=== PATIENT | female | born 1940 | race Caucasian/White ===

== ENCOUNTER 2016-09-23 08:12 | Outpatient (CLI) | payer MEDICARE | END 2016-09-23 08:13 | disposition home or self-care (01) | DX: E55.9 Vitamin D deficiency, unspecified (principal); E78.5 Hyperlipidemia, unspecified; R89.9 Unspecified abnormal finding in specimens from other organs, systems and tissues; R53.83 Other fatigue ==

== ENCOUNTER 2016-10-13 13:39 | Outpatient (CLI) | payer MEDICARE | END 2016-10-13 13:40 | disposition home or self-care (01) | DX: I35.1 Nonrheumatic aortic (valve) insufficiency (principal); I35.0 Nonrheumatic aortic (valve) stenosis; I38 Endocarditis, valve unspecified ==

== ENCOUNTER 2017-01-23 08:00 | Outpatient (CLI) | payer MEDICARE ==
[2017-01-23 19:16] LABS: BILIRUBIN,URINE NEGATIVE (NEGATIVE); PH,URINE 7.5 PH (5.0-7.5)
[2017-01-23 19:47] LABS: UR CULTURE IF IND INDICATED; WBC,URINE >25 /HPF (0-5)
== END 2017-01-23 23:59 ==
LOC: LAB.R 08:00
PROVIDERS: ATTEND Physician Assistant Medical
DX: N39.0 Urinary tract infection, site not specified (principal)
CPT/HCPCS: 81001; 87077; 87086

== ENCOUNTER 2017-07-05 10:41 | Outpatient (CLI) | payer MEDICARE ==
--- NOTE | 2017-07-06 20:21 | Mammography Report ---
DIGITAL SCREENING MAMMOGRAM: 07/05/2017 CLINICAL INDICATION: A 76-year-old for screening. COMPARISON: 02/2016, 02/2015, 01/2014, 12/2012, 11/2011, 10/2010, 09/2009. TECHNIQUE: Routine CC and MLO projections were obtained of the breasts. FINDINGS: Scattered fibroglandular tissue is present within the breasts. There are no dominant mass es, suspicious microcalcifications, or secondary signs of malignancy. In comparison to the previous studies, there are no significant changes. ASSESSMENT: NO MAMMOGRAPHIC EVIDENCE OF MALIGNANCY. NO SIGNIFICANT INTERVAL CHANGES. RECOMMENDATION: Screening mammography is recommended annually. BIRADS category 1 - negative. STANDARD QUALIFYING STATEMENTS 1. This examination was reviewed with the aid of Computed-Aided Detection (CAD). 2. A negative or benign imaging report should not delay biopsy if clinically suspicious findings are present. Consider surgical consultation if warranted. More than 5% of cancers are not identified b y imaging. 3. Dense breasts may obscure an underlying neoplasm. JOB #: [id number] EXT JOB #:[id number]
== END 2017-07-05 10:42 | disposition home or self-care (01) ==
LOC: DI 10:41
PROVIDERS: ATTEND Physician Assistant Medical
DX: Z12.31 Encounter for screening mammogram for malignant neoplasm of breast (principal)
CPT/HCPCS: 77067

== ENCOUNTER 2017-09-25 08:46 | Outpatient (CLI) | payer MEDICARE ==
[2017-09-25 10:42] LABS: BASOPHILS # (AUTO) 0.1 10^3/uL (0.0-0.1); EOSINOPHILS # (AUTO) 0.1 10^3/uL (0.0-0.7); EOSINOPHILS % (AUTO) 1.7 %; HGB - HEMOGLOBIN 14.7 g/dL (12.0-16.0); LYMPHOCYTES # (AUTO) 1.2 10^3/uL (1.5-3.5); LYMPHOCYTES % (AUTO) 23.5 %; MEAN CORPUSCULAR HEMOGLOBIN 31.6 pg (27.0-31.0); MEAN CORPUSCULAR HGB CONC 34.1 g/dL (32.0-36.0); MEAN CORPUSCULAR VOLUME 92.8 fL (81.0-99.0); MEAN PLATELET VOLUME 8.4 fL (7.9-10.8); MONOCYTES # (AUTO) 0.4 10^3/uL (0.0-1.0); MONOCYTES % (AUTO) 7.4 %; NEUTROPHILS # (AUTO) 3.4 10^3/uL (1.5-6.6); NEUTROPHILS % (AUTO) 66.4 %; PLT - PLATELET COUNT 226 10^3/uL (130-450); RED BLOOD COUNT 4.63 10^6/uL (4.20-5.40); RED CELL DISTRIBUTION WIDTH 12.7 % (12.0-15.0); WHITE BLOOD COUNT 5.1 x10^3/uL (4.8-10.8)
[2017-09-25 13:41] LABS: ALBUMIN/GLOBULIN RATIO 1.3 (1.0-2.2); ALKALINE PHOSPHATASE 76 IU/L (42-121); ALT ALANINE AMINOTRANSFERASE 40 IU/L (10-60); AST ASPARTATE AMINOTRANSFERASE 34 IU/L (10-42); BILIRUBIN,TOTAL 0.7 mg/dL (0.2-1.0); BUN - BLOOD UREA NITROGEN 14 mg/dL (6-20); CARBON DIOXIDE - CO2 25 mmol/L (21-32); CHLORIDE 105 mmol/L (101-111); CHOL/HDL RATIO 5.2 (<4.4); CHOLESTEROL 182 mg/dL; CREATININE 0.7 mg/dL (0.4-1.0); GFR - MDRD 82 (>89); GLUCOSE 96 mg/dL (70-100); HDL CHOLESTEROL 35 mg/dL; LDL CHOLESTEROL,CALCULATED 81 mg/dL; LDL/HDL RATIO 2.3 (<4.4); SODIUM 138 mmol/L (135-145); TOTAL PROTEIN 7.2 g/dL (6.7-8.2); VLDL CHOLESTEROL 66 mg/dL
== END 2017-09-25 08:47 | disposition home or self-care (01) ==
LOC: LAB.F 08:46
PROVIDERS: ATTEND Physician Assistant Medical
DX: E78.5 Hyperlipidemia, unspecified (principal); E55.9 Vitamin D deficiency, unspecified; M85.80 Other specified disorders of bone density and structure, unspecified site; L65.9 Nonscarring hair loss, unspecified; R53.83 Other fatigue; Z51.81 Encounter for therapeutic drug level monitoring; Z79.899 Other long term (current) drug therapy
CPT/HCPCS: 36415; 80053; 80061; 82306; 83721; 84443; 85025

== ENCOUNTER 2017-11-10 09:31 | Outpatient (CLI) | payer MEDICARE ==
--- NOTE | 2017-11-10 11:45 | XRAY Report ---
LEFT HAND THREE VIEWS: 11/10/2017 HISTORY: Localized swelling, lump. FINDINGS: Three views of the left hand are interpreted without comparisons. There are scattered degenerative changes of the interphalangeal joints of the fingers and thumb and of the first metacarpocarpal joint. There is no evidence of fracture, dislocation, radiopaque foreign body or other abnormality. In the area of the clinically apparent hematoma on the dorsum of the hand, adjacent to the base of the thumb, no x-ray abnormality is seen. IMPRESSION: DEGENERATIVE CHANGE LEFT HAND WITHOUT SUPERIMPOSED ACUTE BONY PATHOLOGY. TD: 11/10/2017 11:44 MTDNorma
== END 2017-11-10 09:32 | disposition home or self-care (01) ==
LOC: DI 09:31
PROVIDERS: ATTEND Physician Assistant Medical
DX: M19.042 Primary osteoarthritis, left hand (principal)

== ENCOUNTER 2017-12-22 08:14 | Outpatient (CLI) | payer MEDICARE ==
[2017-12-22 13:27] LABS: BUN - BLOOD UREA NITROGEN 14 mg/dL (6-20); CALCIUM 9.4 mg/dL (8.5-10.3); CARBON DIOXIDE - CO2 25 mmol/L (21-32); CHLORIDE 105 mmol/L (101-111); CHOL/HDL RATIO 4.7 (<4.4); CHOLESTEROL 161 mg/dL; CREATININE 0.6 mg/dL (0.4-1.0); GFR - MDRD 97 (>89); GLUCOSE 103 mg/dL (70-100); HDL CHOLESTEROL 34 mg/dL; LDL CHOLESTEROL,CALCULATED 78 mg/dL; LDL/HDL RATIO 2.3 (<4.4); SODIUM 139 mmol/L (135-145); VLDL CHOLESTEROL 49 mg/dL
== END 2017-12-22 08:15 | disposition home or self-care (01) ==
LOC: LAB.F 08:14
PROVIDERS: ATTEND Physician Assistant Medical
DX: E78.5 Hyperlipidemia, unspecified (principal); Z51.81 Encounter for therapeutic drug level monitoring
CPT/HCPCS: 36415; 80048; 80061; 83721

== ENCOUNTER 2018-03-15 09:41 | Outpatient (CLI) | payer MEDICARE ==
[2018-03-15 18:11] LABS: ALBUMIN 4.1 g/dL (3.2-5.5); ALBUMIN/GLOBULIN RATIO 1.4 (1.0-2.2); ALKALINE PHOSPHATASE 87 IU/L (42-121); ALT ALANINE AMINOTRANSFERASE 36 IU/L (10-60); AST ASPARTATE AMINOTRANSFERASE 31 IU/L (10-42); BILIRUBIN,TOTAL 0.8 mg/dL (0.2-1.0); BUN - BLOOD UREA NITROGEN 15 mg/dL (6-20); CALCIUM 9.8 mg/dL (8.5-10.3); CARBON DIOXIDE - CO2 25 mmol/L (21-32); CHLORIDE 106 mmol/L (101-111); CHOLESTEROL 168 mg/dL; CREATININE 0.8 mg/dL (0.4-1.0); GFR - MDRD 70 (>89); GLUCOSE 94 mg/dL (70-100); HDL CHOLESTEROL 42 mg/dL; LDL CHOLESTEROL,CALCULATED 73 mg/dL; LDL/HDL RATIO 1.7 (<4.4); SODIUM 140 mmol/L (135-145); TOTAL PROTEIN 7.1 g/dL (6.7-8.2); VLDL CHOLESTEROL 53 mg/dL
== END 2018-03-15 09:42 | disposition home or self-care (01) ==
LOC: LAB.F 09:41
PROVIDERS: ATTEND Physician Assistant Medical
DX: E78.5 Hyperlipidemia, unspecified (principal); E78.1 Pure hyperglyceridemia; Z51.81 Encounter for therapeutic drug level monitoring
CPT/HCPCS: 36415; 80053; 80061; 83721

== ENCOUNTER 2018-06-26 09:13 | Outpatient (CLI) | payer MEDICARE ==
[2018-06-26 18:02] LABS: ALBUMIN 4.1 g/dL (3.2-5.5); ALBUMIN/GLOBULIN RATIO 1.2 (1.0-2.2); ALKALINE PHOSPHATASE 83 IU/L (42-121); ALT ALANINE AMINOTRANSFERASE 29 IU/L (10-60); AST ASPARTATE AMINOTRANSFERASE 24 IU/L (10-42); BILIRUBIN,TOTAL 0.7 mg/dL (0.2-1.0); BUN - BLOOD UREA NITROGEN 19 mg/dL (6-20); CALCIUM 9.6 mg/dL (8.5-10.3); CARBON DIOXIDE - CO2 29 mmol/L (21-32); CHLORIDE 104 mmol/L (101-111); CHOL/HDL RATIO 4.4 (<4.4); CHOLESTEROL 181 mg/dL; CREATININE 0.8 mg/dL (0.4-1.0); GFR - MDRD 70 (>89); GLUCOSE 94 mg/dL (70-100); HDL CHOLESTEROL 41 mg/dL; LDL CHOLESTEROL,CALCULATED 79 mg/dL; LDL/HDL RATIO 1.9 (<4.4); SODIUM 142 mmol/L (135-145); TOTAL PROTEIN 7.6 g/dL (6.7-8.2); VLDL CHOLESTEROL 61 mg/dL
== END 2018-06-26 09:14 | disposition home or self-care (01) ==
LOC: LAB.F 09:13
PROVIDERS: ATTEND Physician Assistant Medical
DX: E78.5 Hyperlipidemia, unspecified (principal); E78.1 Pure hyperglyceridemia; Z51.81 Encounter for therapeutic drug level monitoring
CPT/HCPCS: 36415; 80053; 80061; 83721

== ENCOUNTER 2018-07-10 13:06 | Outpatient (CLI) | payer MEDICARE ==
--- NOTE | 2018-07-11 08:57 | DEXA Report ---
Reason: POSTMENOPAUSAL STATUS Procedure Date: 07/10/2018 Accession Number: [id number] / [id number] Procedure: DEX - Dexa Spine and/or Hip CPT Code: FULL RESULT: EXAM: Dexa Spine and/or Hip DATE: 07/10/2018 1:38 PM CLINICAL HISTORY: POSTMENOPAUSAL STATUS TECHNIQUE: Dual energy x-ray absorptiometry (DXA) was performed on a be2 System. Regions measured are the AP Spine, femoral neck, and if needed forearm. COMPARISON: 04/25/2016 In accordance with the International Society for Clinical Densitometry (ISCD) guidelines, data from previous exams may be reanalyzed using current recommendations and techniques. This is done to allow a more accurate basis for comparison with the current study. FINDINGS: The data for the lumbar spine is as follows: BMD (g/cm/cm) T-SCORE Z-SCORE REGION L1 L2 1.001 -1.7 0.0 L3 1.352 1.3 3.0 L4 1.290 0.8 2.5 TOTAL 1.214 0.1 1.8 NOTE: All evaluable vertebrae are used for classification The data for the hip is as follows: BMD (g/cm/cm) T-SCORE Z-SCORE REGION Neck 0.747 -2.1 -0.2 TOTAL 0.788 -1.7 0.0 NOTE: The femoral neck or total proximal femur, whichever is lowest, is used for classification. DXA RESULTS SUMMARY: Spine SCAN DATE AGE BMD CHANGE VS CHANGE VS PREVIOUS PREVIOUS % 07[age]10/2018 [age] 1.214 0.103* 9.3* 04/25/2016 [age] 1.111 * Denotes significant change at the 95% confidence level. Denotes dissimilar scan types or analysis methods. DXA RESULTS SUMMARY: Hip SCAN DATE AGE BMD CHANGE VS CHANGE VS PREVIOUS PREVIOUS % 07[birth year]10/2018 [age] 0.788 -0.009 -1.1 04/25/2016 [age] 0.797 * Denotes significant change at the 95% confidence level. Denotes dissimilar scan types or analysis methods. IMPRESSION: THE WHO CLASSIFICATION BASED ON THE INTERNATIONAL REFERENCE STANDARD IS OSTEOPENIA. THE FRACTURE RISK IS INCREASED. RECOMMENDATION: Patients with diagnosis of osteoporosis or osteopenia should have regular bone mineral density assessment. For those eligible for Medicare, routine testing is allowed once every 2 years. Testing frequency can be increased for patients who have rapidly progressing disease or for those who are receiving medical therapy to restore bone mass. Please note that the lumbar vertebral body labeled L2 is in actuality likely L1. This technical inaccuracy was propagated from the previous DEXA scan in order to obtain a consistent and comparable measurement of the bone density in the lumbar spine. COMMENT: World Health Organization (WHO) definitions for osteoporosis and osteopenia: NORMAL BMD: T-score at -1.0 or higher, fracture risk is low OSTEOPENIA BMD: T-score between -1.0 and -2.5, fracture risk is increased. OSTEOPOROSIS BMD: T-score at -2.5 or lower, fracture risk is high. National Osteoporosis Foundation recommends: 1. Obtain adequate dietary calcium (at least 1200 mg per day) and vitamin D (400-800 international units per day). 2. Participate, as appropriate, in regular weightbearing and muscle-strengthening exercise. 3. Avoid tobacco use and reduce alcohol and caffeine intake. 4. For more detailed information see the website at www.NOF.org.
== END 2018-07-10 13:07 | disposition home or self-care (01) ==
LOC: DI 13:06
PROVIDERS: ATTEND Physician Assistant Medical
DX: M85.89 Other specified disorders of bone density and structure, multiple sites (principal); Z78.0 Asymptomatic menopausal state
CPT/HCPCS: 77080

== ENCOUNTER 2018-12-17 12:20 | Outpatient (CLI) | payer MEDICARE ==
[2018-12-17 17:43] LABS: BASOPHILS % (AUTO) 0.8 %; EOSINOPHILS # (AUTO) 0.2 10^3/uL (0.0-0.7); EOSINOPHILS % (AUTO) 3.7 %; HGB - HEMOGLOBIN 13.7 g/dL (12.0-16.0); LYMPHOCYTES # (AUTO) 1.3 10^3/uL (1.5-3.5); LYMPHOCYTES % (AUTO) 25.9 %; MEAN CORPUSCULAR HEMOGLOBIN 32.2 pg (27.0-31.0); MEAN CORPUSCULAR VOLUME 97.3 fL (81.0-99.0); MEAN PLATELET VOLUME 8.2 fL (7.9-10.8); MONOCYTES # (AUTO) 0.4 10^3/uL (0.0-1.0); MONOCYTES % (AUTO) 8.5 %; NEUTROPHILS # (AUTO) 3.2 10^3/uL (1.5-6.6); NEUTROPHILS % (AUTO) 61.1 %; PLT - PLATELET COUNT 250 10^3/uL (130-450); RED BLOOD COUNT 4.25 10^6/uL (4.20-5.40); RED CELL DISTRIBUTION WIDTH 13.1 % (12.0-15.0); WHITE BLOOD COUNT 5.2 x10^3/uL (4.8-10.8)
[2018-12-17 18:20] LABS: CHOL/HDL RATIO 4.1 (<4.4); CHOLESTEROL 167 mg/dL; HDL CHOLESTEROL 41 mg/dL; LDL CHOLESTEROL,CALCULATED 61 mg/dL; LDL/HDL RATIO 1.5 (<4.4); VLDL CHOLESTEROL 65 mg/dL
== END 2018-12-17 12:21 | disposition home or self-care (01) ==
LOC: LAB.F 12:20
PROVIDERS: ATTEND Physician Assistant Medical
DX: E78.5 Hyperlipidemia, unspecified (principal); Z79.899 Other long term (current) drug therapy
CPT/HCPCS: 36415; 80061; 83721; 85025

== ENCOUNTER 2019-05-07 16:47 | Outpatient (CLI) | payer MEDICARE ==
[2019-05-07 17:02] LABS: BASOPHILS # (AUTO) 0.1 10^3/uL (0.0-0.1); BASOPHILS % (AUTO) 0.4 %; EOSINOPHILS % (AUTO) 0.2 %; HGB - HEMOGLOBIN 13.8 g/dL (12.0-16.0); LYMPHOCYTES # (AUTO) 1.9 10^3/uL (1.5-3.5); LYMPHOCYTES % (AUTO) 14.8 %; MEAN CORPUSCULAR HEMOGLOBIN 32.4 pg (27.0-31.0); MEAN CORPUSCULAR VOLUME 98.1 fL (81.0-99.0); MEAN PLATELET VOLUME 9.1 fL (7.9-10.8); MONOCYTES % (AUTO) 7.5 %; NEUTROPHILS % (AUTO) 76.6 %; PLT - PLATELET COUNT 243 10^3/uL (130-450); RED BLOOD COUNT 4.26 10^6/uL (4.20-5.40); RED CELL DISTRIBUTION WIDTH 12.5 % (12.0-15.0)
[2019-05-07 17:15] LABS: CREATININE 0.7 mg/dL (0.4-1.0)
== END 2019-05-07 16:48 | disposition home or self-care (01) ==
LOC: LAB 16:47
PROVIDERS: ATTEND Family Medicine
DX: K57.92 Diverticulitis of intestine, part unspecified, without perforation or abscess without bleeding (principal)
CPT/HCPCS: 36415; 80048; 85025

== ENCOUNTER 2019-06-06 09:00 | Outpatient (CLI) | payer MEDICARE ==
[2019-06-06 18:19] LABS: ALBUMIN 4.6 g/dL (3.2-5.5); ALBUMIN/GLOBULIN RATIO 1.4 (1.0-2.2); ALKALINE PHOSPHATASE 84 IU/L (42-121); ALT ALANINE AMINOTRANSFERASE 32 IU/L (10-60); AST ASPARTATE AMINOTRANSFERASE 31 IU/L (10-42); BILIRUBIN,TOTAL 0.6 mg/dL (0.2-1.0); BUN - BLOOD UREA NITROGEN 13 mg/dL (6-20); CALCIUM 9.6 mg/dL (8.5-10.3); CARBON DIOXIDE - CO2 28 mmol/L (21-32); CHLORIDE 105 mmol/L (101-111); CHOL/HDL RATIO 2.9 (<4.4); CHOLESTEROL 135 mg/dL; CREATININE 0.7 mg/dL (0.4-1.0); GFR - MDRD 81 (>89); GLUCOSE 103 mg/dL (70-100); HDL CHOLESTEROL 47 mg/dL; LDL CHOLESTEROL,CALCULATED 35 mg/dL; LDL/HDL RATIO 0.7 (<4.4); SODIUM 139 mmol/L (135-145); VLDL CHOLESTEROL 53 mg/dL
== END 2019-06-06 09:01 | disposition home or self-care (01) ==
LOC: LAB.S 09:00
PROVIDERS: ATTEND Family Medicine
DX: K57.92 Diverticulitis of intestine, part unspecified, without perforation or abscess without bleeding (principal); E78.5 Hyperlipidemia, unspecified; Z51.81 Encounter for therapeutic drug level monitoring; Z79.899 Other long term (current) drug therapy
CPT/HCPCS: 36415; 80053; 80061; 83721

== ENCOUNTER 2019-08-28 10:50 | Outpatient (CLI) | payer MEDICARE ==
--- NOTE | 2019-08-29 12:50 | CARDIAC PROCEDURE NOTE ---
DATE OF SERVICE: 08/28/2019 Physician: Claudette Pillai MD, [facility] INDICATION: Exertional shortness of breath, aortic regurgitation. CARDIAC RISK FACTORS: Postmenopausal, hyperlipidemia, family history of heart disease at early age. DESCRIPTION OF PROCEDURE: After signing informed consent, the patient underwent a Abner-protocol treadmill stress test with Echo imaging pre and post exercise. RESTING HEART RATE: 62. PEAK HEART RATE: 136 (94% predicted maximum heart rate for age). RESTING BLOOD PRESSURE: 141/77. PEAK BLOOD PRESSURE: 189/92. The patient exercised for 4 minutes. She achieved a peak heart rate of 136 (94% PMHR) and 5.8 METS. The patient had moderate shortness of breath at peak, no chest pain. The test was stopped because of fatigue and achieving target heart rate. Oxygen saturation was 93-98% throughout the entire test, on room air. RESTING EKG: Normal sinus rhythm, poor R-wave progression, inverted T waves in leads V3 through V6. EKG AT PEAK: New flattening of T waves in leads V3 through V6. SUMMARY: 1. Abnormal resting EKG. 2. Fair exercise tolerance. 3. T-wave changes develop, suggesting ischemia by EKG criteria, during exercise stress. 4. This patient's cardiac risk based on all the above: Moderate-High. 5. Echo images looking for wall motion abnormalities are reported separately. cc: Annel Corcoran PA-C TD: 08/29/2019 12:16 MTDD
== END 2019-08-28 10:51 | disposition home or self-care (01) ==
LOC: DI 10:50
PROVIDERS: ATTEND Physician Assistant Medical
DX: I35.2 Nonrheumatic aortic (valve) stenosis with insufficiency (principal); R06.09 Other forms of dyspnea; R94.31 Abnormal electrocardiogram [ECG] [EKG]
CPT/HCPCS: 93350

== ENCOUNTER 2019-08-28 10:53 | Outpatient (CLI) | payer MEDICARE ==
--- NOTE | 2019-08-28 16:00 | Mammography Report ---
Reason: SCREENING MAMMO Procedure Date: 08/28/2019 Accession Number: [id number] / [id number] Procedure: MANUEL - Screening Mammo w/Gino CPT Code: Final Report FULL RESULT: EXAM: Screening Mammo w/Gino DATE: 08/28/2019 12:52 PM CLINICAL HISTORY: The patient is an asymptomatic 78-year-old female with a second degree family history of breast cancer. TECHNIQUE: (B) - Bilateral CC and MLO views were obtained. COMPARISON: 07/05/2017, 02/18/2016, 02/11/2015, 01/11/2014 and 12/18/2012 PARENCHYMAL PATTERN: (A) - The breasts demonstrate scattered fibroglandular densities bilaterally. FINDINGS: The pattern of asymmetry is stable given positional variation. Few benign calcifications again noted. There are no suspicious masses, calcifications, or areas of distortion. IMPRESSION: Benign findings. BI-RADS category 2. RECOMMENDATION: (ANNUAL) - Recommend routine annual screening mammography. BI-RADS CATEGORY: (2) - Benign Findings. STANDARD QUALIFYING STATEMENTS: A negative or benign imaging report should not preclude biopsy if clinically suspicious findings are present. Dense breasts may obscure an underlying neoplasm. This examination was reviewed with the aid of 3D breast imaging (tomosynthesis).
== END 2019-08-28 10:54 | disposition home or self-care (01) ==
LOC: DI 10:53
PROVIDERS: ATTEND Physician Assistant Medical
DX: Z12.31 Encounter for screening mammogram for malignant neoplasm of breast (principal); Z80.3 Family history of malignant neoplasm of breast
CPT/HCPCS: 77063; 77067

== ENCOUNTER 2019-10-07 16:41 | Emergency (ER) | payer MEDICARE ==
[2019-10-07] MEDS ORDERED: KETOROLAC 30 MG/ML VIAL IVP STA (17:03)
[2019-10-07] MEDS ORDERED: MORPHINE 2 MG/ML CARPUJECT IVP STA ×2 (17:03→17:49)
--- NOTE | 2019-10-07 17:05 | ED Physician Documentation ---
History of Present Illness - Stated complaint Stated Complaint: LT SIDE WEAKNESS/CP/BACK PX - Chief complaint Chief Complaint: Ext Problem - History obtained from History obtained from: Patient, Family - History of Present Illness Timing: Today Pain level max: 10 Pain level now: 10 - Additonal information Additional information: 78-year-old female states that she woke up today with left shoulder pain. She states that she rubbed CBD oil on it and went about her day. 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 The pain is gradually worsened throughout the day. Now radiating down the left arm into the left neck. Also has pain in the left upper chest. No shortness of breath. No cardiac history. Worse with movement and better with rest. Does not recall any injury. Review of Systems Ten Systems: 10 systems reviewed and negative Constitutional: denies: Fever, Chills Ears: denies: Ear pain Nose: denies: Rhinorrhea / runny nose, Congestion Throat: denies: Sore throat Cardiac: denies: Palpitations, Calf pain Respiratory: denies: Cough GI: denies: Nausea, Vomiting, Diarrhea Skin: denies: Rash Musculoskeletal: denies: Neck pain, Back pain Neurologic: denies: Headache PD PAST MEDICAL HISTORY - Past Medical History Cardiovascular: High cholesterol, Murmur Respiratory: None Endocrine/Autoimmune: None GI: GERD, Colon polyps : None HEENT: None Psych: Depression Musculoskeletal: Osteoarthritis, Chronic back pain Derm: None - Past Surgical History General: Colonoscopy Ortho: Spine surgery /[employer]INGUIST: Tubal ligation HEENT: Cataracts - Present Medications Home Medications: Ambulatory Orders Medication Instructions Recorded Confirmed Atorvastatin Calcium 1 QPM 07/06/16 Biotin 0.5 DAILY 07/06/16 Calcium Carbonate/Vitamin D3 2 DAILY 07/06/16 [Calcium 600-Vit D3 400 Tablet] Cholecalciferol (Vitamin D3) 4 BID 07/06/16 [Vitamin D3] Citalopram [CeleXA] 1.5 DAILY 07/06/16 Cyanocobalamin (Vitamin B-12) 1 DAILY 07/06/16 [Vitamin B12] Docusate Sodium [Stool Softener] 2 BID 07/06/16 Gabapentin 1 BID 07/06/16 Hydrocodone/Acetaminophen 1 BID 07/06/16 [Hydrocodone-APAP 5-300] Magnesium 2 DAILY PM 11/30/16 Multivitamin [Multivitamins] 1 DAILY 07/06/16 Naproxen Sodium [Aleve] 2 BID 07/06/16 Diclofenac Sodium [Voltaren] 2 gm TP Q6H PRN #1 gel..gram. 10/07/19 Oxycodone HCl 5 - 10 mg PO Q6H PRN #20 tablet 10/07/19 - Allergies Allergies/Adverse Reactions: Allergies Allergy/AdvReac Type Severity Reaction Status Date / Time Sulfa (Sulfonamide Allergy Unknown Verified 07/06/16 15:54 Antibiotics) PD ED PE NORMAL - Vitals Vital signs reviewed: Yes - General General: Alert and oriented X 3, No acute distress, Well developed/nourished - HEENT HEENT: PERRL, Moist mucous membranes - Neck Neck: Supple, no meningeal sign - Cardiac Cardiac: RRR, No murmur, Strong equal pulses - Respiratory Respiratory: No respiratory distress, Clear bilaterally - Abdomen Abdomen: Soft, Non tender, Non distended - Back Back: No spinal TTP - Derm Derm: Warm and dry - Extremities Extremities: No edema, No calf tenderness / cord, Other (Tender to palpation over the left glenohumeral joint. Pain with internal and external rotation. Limited range of motion secondary to pain. Also tender around the rotator cuff. Otherwise normal exam of the left shoulder.) - Neuro Neuro: Alert and oriented X 3 - Psych Psych: Normal mood, Normal affect Results - Vitals Vitals: Vital Signs - 24 hr 10/07/19 10/07/19 10/07/19 16:45 17:00 17:49 Temperature 36.9 C Heart Rate 74 80 75 Respiratory 18 24 18 Rate Blood Pressure 119/80 121/85 H 147/83 H O2 Saturation 97 100 97 10/07/19 18:25 Temperature Heart Rate 80 Respiratory 16 Rate Blood Pressure 147/86 H O2 Saturation 100 Oxygen O2 Source Room air - EKG (time done) 1655 Rate: Rate (enter#) (65) Rhythm: NSR [place]: Anterior hemiblock (LAFB) Intervals: Normal [place] QRS: Normal Ischemia: Non specific changes - Labs Labs: Laboratory Tests 10/07/19 10/07/19 10/07/19 17:20 17:20 17:20 WBC 10.8 RBC 3.98 L Hgb 13.2 Hct 39.3 MCV 98.7 MCH 33.2 H MCHC 33.6 RDW 12.1 Plt Count 224 MPV 9.2 Neut # (Auto) 8.0 H Lymph # (Auto) 1.9 [place] # (Auto) 0.7 Eos # (Auto) 0.1 Baso # (Auto) 0.1 Absolute Nucleated RBC 0.00 Nucleated RBC % 0.0 Sodium 136 Potassium 4.3 Chloride 102 Carbon Dioxide 24 Anion Gap 10.0 BUN 17 Creatinine 1.0 Estimated GFR (MDRD) 54 L Glucose 137 H Calcium 9.8 Total Bilirubin 0.7 AST 28 ALT 24 Alkaline Phosphatase 64 Troponin I High Sens 3.2 Total Protein 7.3 Albumin 4.5 Globulin 2.8 Albumin/Globulin Ratio 1.6 Lipase 30 - Rads (name of study) Chest x-ray Radiology: Prelim report reviewed, EMP read contemporaneously, See rad report (No acute abnormality) Left shoulder x-ray Radiology: Prelim report reviewed, EMP read contemporaneously, See rad report (No acute abnormality) PD MEDICAL DECISION MAKING - ED course Complexity details: reviewed results, re-evaluated patient, considered differential, d/w patient, d/w family ED course: Patient with left shoulder pain, likely rotator cuff injury. Will place in a sling, prescribed pain medication for home and have her follow-up with her doctor. No significant lab abnormalities. No evidence of cardiac etiology. No evidence of aortic dissection. Neurovascular intact. Patient counseled regarding signs and symptoms for which I believe and urgent re-evaluation would be necessary. Patient with good understanding of and agreement to plan and is comfortable going home at this time This document was made in part using voice recognition software. While efforts are made to proofread this document, sound alike and grammatical errors may occur. Departure - Departure Disposition: 01 Home, Self Care Clinical Impression: Left shoulder pain Qualifiers: Chronicity: acute Qualified Code(s): M25.512 - Pain in left shoulder Condition: Good Instructions: ED Shoulder Pain [facility] Follow-Up: Annel Corcoran PA-C [Primary Care Provider] - [facility] [Provider Group] - Within 1 week Prescriptions: Diclofenac Sodium [Voltaren] 2 gm TP Q6H PRN #1 gel..gram. PRN Reason: pain Oxycodone HCl 5 - 10 mg PO Q6H PRN #20 tablet PRN Reason: pain Comments: Return if you worsen. Follow-up with your doctor and/or orthopedics next week for repeat evaluation. Wear the sling for the next 2 to 3 days. Continue to gently range and stretch her shoulder. You can try the Voltaren gel as well. Do not drink alcohol or drive while on narcotic pain medicine. Note that many narcotic pain relievers also contain tylenol/acetaminophen. Please ensure that your total dose of acetaminophen from all sources does not exceed 3 grams (3000mg) per day. You may constipated on this medication, take a stool softener such as "Colace" twice a day while you are on it. Also recommend a iupy-ldx-gnwfsmr laxative such as senna or MiraLAX any day that you do not have a bowel movement. If you received narcotic pain medication in the emergency department, do not drive or operate machinery for the next 24 hours. Discharge Date/Time: 10/07/19 18:24
[2019-10-07 17:27] LABS: BASOPHILS # (AUTO) 0.1 10^3/uL (0.0-0.1); BASOPHILS % (AUTO) 0.5 %; EOSINOPHILS # (AUTO) 0.1 10^3/uL (0.0-0.7); EOSINOPHILS % (AUTO) 0.9 %; HGB - HEMOGLOBIN 13.2 g/dL (12.0-16.0); LYMPHOCYTES # (AUTO) 1.9 10^3/uL (1.5-3.5); LYMPHOCYTES % (AUTO) 17.5 %; MEAN CORPUSCULAR HEMOGLOBIN 33.2 pg (27.0-31.0); MEAN CORPUSCULAR HGB CONC 33.6 g/dL (32.0-36.0); MEAN CORPUSCULAR VOLUME 98.7 fL (81.0-99.0); MEAN PLATELET VOLUME 9.2 fL (7.9-10.8); MONOCYTES # (AUTO) 0.7 10^3/uL (0.0-1.0); MONOCYTES % (AUTO) 6.8 %; NEUTROPHILS % (AUTO) 73.8 %; PLT - PLATELET COUNT 224 10^3/uL (130-450); RED BLOOD COUNT 3.98 10^6/uL (4.20-5.40); RED CELL DISTRIBUTION WIDTH 12.1 % (12.0-15.0); WHITE BLOOD COUNT 10.8 x10^3/uL (4.8-10.8)
--- NOTE | 2019-10-07 17:32 | XRAY Report ---
Reason: L shoulder pain Procedure Date: 10/07/2019 Accession Number: [id number] / [id number] Procedure: XR - Shoulder 3 View LT CPT Code: Final Report FULL RESULT: EXAM: LEFT SHOULDER RADIOGRAPHY EXAM DATE: 10/07/2019 05:19 PM. CLINICAL HISTORY: Left shoulder pain. COMPARISON: None. TECHNIQUE: 3 views. FINDINGS: Bones: Normal. No fracture or bone lesion. Joints: Mild acromioclavicular joint degenerative changes. No dislocation seen. Soft tissues: There is a calcified granuloma at the left lung base. The visualized ribs are intact. IMPRESSION: Mild acromioclavicular joint degenerative changes, otherwise unremarkable. RADIA
--- NOTE | 2019-10-07 17:33 | XRAY Report ---
Reason: Chest Pain Procedure Date: 10/07/2019 Accession Number: [id number] / [id number] Procedure: XR - Chest 1 View X-Ray CPT Code: 33842 Final Report FULL RESULT: EXAM: CHEST RADIOGRAPHY EXAM DATE: 10/07/2019 05:19 PM. CLINICAL HISTORY: Chest Pain. COMPARISON: None. TECHNIQUE: 1 view. FINDINGS: Lungs/Pleura: Low lung volumes. Small calcified nodule seen at both lung bases. There is no confluent lung consolidation. No pleural effusion or pneumothorax. Mediastinum: Within exam limitations, the cardiomediastinal contour is normal. Other: None. IMPRESSION: Unremarkable portable chest radiograph. RADIA
[2019-10-07 17:40] LABS: ALBUMIN 4.5 g/dL (3.2-5.5); ALBUMIN/GLOBULIN RATIO 1.6 (1.0-2.2); BILIRUBIN,TOTAL 0.7 mg/dL (0.2-1.0); CALCIUM 9.8 mg/dL (8.5-10.3); TOTAL PROTEIN 7.3 g/dL (6.7-8.2)
[2019-10-07 18:28] VITALS: BP 147/86
== END 2019-10-07 18:24 | disposition home or self-care (01) ==
LOC: ED 16:41
DX: M25.512 Pain in left shoulder (principal)
CPT/HCPCS: 36415; 71045; 80053; 83690; 84484; 85025; 93005; 96374; 96375; 96376; 99284

== ENCOUNTER 2020-07-13 08:43 | Outpatient (CLI) | payer MEDICARE ==
[2020-07-13 15:17] LABS: BASOPHILS % (AUTO) 0.9 %; EOSINOPHILS # (AUTO) 0.1 10^3/uL (0.0-0.7); EOSINOPHILS % (AUTO) 1.6 %; HGB - HEMOGLOBIN 13.4 g/dL (12.0-16.0); LYMPHOCYTES # (AUTO) 1.1 10^3/uL (1.5-3.5); LYMPHOCYTES % (AUTO) 25.7 %; MEAN CORPUSCULAR HEMOGLOBIN 32.2 pg (27.0-31.0); MEAN CORPUSCULAR HGB CONC 31.5 g/dL (32.0-36.0); MEAN CORPUSCULAR VOLUME 102.4 fL (81.0-99.0); MEAN PLATELET VOLUME 9.8 fL (7.9-10.8); MONOCYTES # (AUTO) 0.4 10^3/uL (0.0-1.0); NEUTROPHILS # (AUTO) 2.7 10^3/uL (1.5-6.6); NEUTROPHILS % (AUTO) 61.4 %; PLT - PLATELET COUNT 236 10^3/uL (130-450); RED BLOOD COUNT 4.16 10^6/uL (4.20-5.40); RED CELL DISTRIBUTION WIDTH 12.5 % (12.0-15.0); WHITE BLOOD COUNT 4.4 x10^3/uL (4.8-10.8)
[2020-07-13 15:41] LABS: ALBUMIN 4.3 g/dL (3.2-5.5); ALBUMIN/GLOBULIN RATIO 1.3 (1.0-2.2); ALKALINE PHOSPHATASE 65 IU/L (42-121); ALT ALANINE AMINOTRANSFERASE 34 IU/L (10-60); AST ASPARTATE AMINOTRANSFERASE 33 IU/L (10-42); BILIRUBIN,TOTAL 0.9 mg/dL (0.2-1.0); BUN - BLOOD UREA NITROGEN 22 mg/dL (6-20); CALCIUM 9.9 mg/dL (8.5-10.3); CARBON DIOXIDE - CO2 24 mmol/L (21-32); CHLORIDE 107 mmol/L (101-111); CHOLESTEROL 131 mg/dL; CREATININE 0.7 mg/dL (0.4-1.0); GLUCOSE 103 mg/dL (70-100); HDL CHOLESTEROL 48 mg/dL; LDL CHOLESTEROL,CALCULATED 46 mg/dL; SODIUM 139 mmol/L (135-145); TOTAL PROTEIN 7.5 g/dL (6.7-8.2); VLDL CHOLESTEROL 37 mg/dL
[2020-07-13 15:42] LABS: CHOL/HDL RATIO 2.7 (<4.4)
== END 2020-07-13 08:44 | disposition home or self-care (01) ==
LOC: LAB.S 08:43
PROVIDERS: ATTEND Physician Assistant
DX: Z00.00 Encounter for general adult medical examination without abnormal findings (principal); E78.5 Hyperlipidemia, unspecified; G47.00 Insomnia, unspecified; Z79.891 Long term (current) use of opiate analgesic
CPT/HCPCS: 36415; 80053; 80061; 83721; 84443; 85025

== ENCOUNTER 2020-10-09 08:51 | Outpatient (CLI) | payer MEDICARE | END 2020-10-09 08:52 | disposition home or self-care (01) | LOC: LAB.S 08:51 | PROVIDERS: ATTEND Physician Assistant | DX: R25.1 Tremor, unspecified (principal); Z79.899 Other long term (current) drug therapy | CPT/HCPCS: 36415; 82533 ==

== ENCOUNTER 2020-10-11 15:08 | Outpatient (CLI) | payer MEDICARE ==
--- NOTE | 2020-10-13 11:35 | Mammography Report ---
BILATERAL DIGITAL SCREENING MAMMOGRAM 3D/2D: 10/11/2020 CLINICAL: Routine screening. Routine screening. Routine screening. Comparison: 08/28/2019, 07/05/2017, 02/18/2016, 02/11/2015. There are scattered fibroglandular elements in both breasts. No significant masses, calcifications, or other findings are seen in either breast. IMPRESSION: NEGATIVE There is no mammographic evidence of malignancy. A 1 year screening mammogram is recommended. This exam was interpreted at Station ID: [id number]. NOTE: For mammograms, a report in lay terms will be sent to the patient. Approximately 15% of breast malignancies will not be visualized mammographically. In the management of a palpable breast mass, a negative mammogram must not discourage biopsy of a clinically suspicious lesion. Electronically Signed By: Denzel Freeman M.D. aty/:10/12/2020 08:05:45 ACR BI-RADS Category 1: Negative 3341F PARENCHYMAL PATTERN: (A) - The breast(s) demonstrate(s) scattered fibroglandular densities. BI-RADS CATEGORY: (1) - 1 RECOMMENDATION: (ANNUAL) - Recommend routine annual screening mammography. [id number] 1 year screening LATERALITY: (B)
== END 2020-10-11 15:09 | disposition home or self-care (01) ==
LOC: DI.S 15:08
DX: Z12.31 Encounter for screening mammogram for malignant neoplasm of breast (principal)

== ENCOUNTER 2021-01-12 10:59 | Outpatient (CLI) | payer MEDICARE ==
--- NOTE | 2021-01-12 12:06 | DEXA Report ---
PROCEDURE: Dexa Spine and/or Hip INDICATIONS: OSTEOPENIA TECHNIQUE: Dual energy x-ray absorptiometry (DXA) was performed on a Levanta System. Regions measur ed are the AP Spine, femoral neck, and if needed forearm. COMPARISON: 04/25/2016, baseline exam FINDINGS: Lumbar Spine: Bone Mineral Density 1.239 g/cm/cm,T score 0.5, normal, change from baseline 15.1%, significant Left Hip: Bone Mineral Density 0.786 g/cm/cm,T score -1.8, osteopenia, change from baseline -0.3% Left Femoral Neck: Bone Mineral Density 0.740 g/cm/cm, T score -2.1, osteopenia (T score greater or equal to -1.0: NORMAL) (T score from -1.1 to -2.4: OSTEOPENIA) (T score less than or equal to -2.5 to: OSTEOPOROSIS) Impression: 1. Osteopenia elevates the patient's 10 year fracture risk. 2. Significant interval increase in lumbar spine bone mineral density compared to the prior study is likely due to asymmetric sclerotic change at the L2-3 endplates. Patients with diagnosis of osteoporosis or osteopenia should have regular bone mineral density assess ment. For those eligible for Medicare, routine testing is allowed once every 2 years. Testing frequ ency can be increased for patients who have rapidly progressing disease or for those who are receivin g medical therapy to restore bone mass. Reviewed by: Poonam Raygoza MD on 01/12/2021 12:04 PM PDT Approved by: Poonam Raygoza MD on 01/12/2021 12:04 PM PDT Station ID: [id number]
== END 2021-01-12 11:00 | disposition home or self-care (01) ==
LOC: DI 10:59
PROVIDERS: ATTEND Physician Assistant
DX: M85.88 Other specified disorders of bone density and structure, other site (principal)

== ENCOUNTER 2021-01-20 08:00 | Outpatient (CLI) | payer MEDICARE | END 2021-01-20 23:59 | disposition home or self-care (01) | LOC: LAB.F 08:00 | PROVIDERS: ATTEND Physician Assistant | DX: R35.0 Frequency of micturition (principal) | CPT/HCPCS: 81002 ==

== ENCOUNTER 2021-04-08 09:24 | Outpatient (CLI) | payer MEDICARE ==
[2021-04-08 14:53] LABS: BASOPHILS % (AUTO) 0.8 %; EOSINOPHILS # (AUTO) 0.1 10^3/uL (0.0-0.7); EOSINOPHILS % (AUTO) 1.5 %; HGB - HEMOGLOBIN 14.3 g/dL (12.0-16.0); LYMPHOCYTES # (AUTO) 1.3 10^3/uL (1.5-3.5); LYMPHOCYTES % (AUTO) 26.7 %; MEAN CORPUSCULAR HEMOGLOBIN 32.4 pg (27.0-31.0); MEAN CORPUSCULAR HGB CONC 32.5 g/dL (32.0-36.0); MEAN CORPUSCULAR VOLUME 99.8 fL (81.0-99.0); MEAN PLATELET VOLUME 10.2 fL (7.9-10.8); MONOCYTES # (AUTO) 0.4 10^3/uL (0.0-1.0); MONOCYTES % (AUTO) 7.9 %; NEUTROPHILS % (AUTO) 62.9 %; PLT - PLATELET COUNT 226 10^3/uL (130-450); RED BLOOD COUNT 4.41 10^6/uL (4.20-5.40); WHITE BLOOD COUNT 4.8 x10^3/uL (4.8-10.8)
[2021-04-08 15:17] LABS: ALBUMIN 4.4 g/dL (3.2-5.5); ALBUMIN/GLOBULIN RATIO 1.5 (1.0-2.2); ALKALINE PHOSPHATASE 67 IU/L (42-121); ALT ALANINE AMINOTRANSFERASE 47 IU/L (10-60); AST ASPARTATE AMINOTRANSFERASE 36 IU/L (10-42); BUN - BLOOD UREA NITROGEN 16 mg/dL (6-20); CALCIUM 9.5 mg/dL (8.5-10.3); CARBON DIOXIDE - CO2 29 mmol/L (21-32); CHLORIDE 104 mmol/L (101-111); CHOL/HDL RATIO 2.9 (<4.4); CHOLESTEROL 141 mg/dL; CREATININE 0.6 mg/dL (0.4-1.0); GFR - MDRD 97 (>89); GLUCOSE 104 mg/dL (70-100); HDL CHOLESTEROL 48 mg/dL; LDL CHOLESTEROL,CALCULATED 56 mg/dL; LDL/HDL RATIO 1.2 (<4.4); POTASSIUM 4.3 mmol/L (3.5-5.0); SODIUM 139 mmol/L (135-145); TOTAL PROTEIN 7.3 g/dL (6.7-8.2); TRIGLYCERIDES 184 mg/dL; VLDL CHOLESTEROL 37 mg/dL
[2021-04-08 15:26] LABS: THYROID STIMULATING HORMONE 1.9 uIU/mL (0.34-5.60)
== END 2021-04-08 09:25 | disposition home or self-care (01) ==
LOC: LAB.S 09:24
PROVIDERS: ATTEND Physician Assistant
DX: Z00.00 Encounter for general adult medical examination without abnormal findings (principal); J45.909 Unspecified asthma, uncomplicated; K21.9 Gastro-esophageal reflux disease without esophagitis; Z79.899 Other long term (current) drug therapy; I35.0 Nonrheumatic aortic (valve) stenosis; G47.00 Insomnia, unspecified; E78.5 Hyperlipidemia, unspecified; F32.9 Major depressive disorder, single episode, unspecified
CPT/HCPCS: 36415; 80053; 80061; 83721; 84443; 85025

== ENCOUNTER 2021-10-26 09:08 | Outpatient (CLI) | payer MEDICARE ==
[2021-10-26 14:54] LABS: BASOPHILS # (AUTO) 0.1 10^3/uL (0.0-0.1); BASOPHILS % (AUTO) 1.1 %; EOSINOPHILS # (AUTO) 0.1 10^3/uL (0.0-0.7); EOSINOPHILS % (AUTO) 1.3 %; HCT - HEMATOCRIT 42.3 % (37.0-47.0); HGB - HEMOGLOBIN 13.8 g/dL (12.0-16.0); LYMPHOCYTES # (AUTO) 1.3 10^3/uL (1.5-3.5); LYMPHOCYTES % (AUTO) 22.8 %; MEAN CORPUSCULAR HEMOGLOBIN 32.2 pg (27.0-31.0); MEAN CORPUSCULAR HGB CONC 32.6 g/dL (32.0-36.0); MEAN CORPUSCULAR VOLUME 98.8 fL (81.0-99.0); MEAN PLATELET VOLUME 10.2 fL (7.9-10.8); MONOCYTES # (AUTO) 0.5 10^3/uL (0.0-1.0); MONOCYTES % (AUTO) 8.2 %; NEUTROPHILS # (AUTO) 3.7 10^3/uL (1.5-6.6); NEUTROPHILS % (AUTO) 66.4 %; PLT - PLATELET COUNT 227 10^3/uL (130-450); RED BLOOD COUNT 4.28 10^6/uL (4.20-5.40); RED CELL DISTRIBUTION WIDTH 12.3 % (12.0-15.0); WHITE BLOOD COUNT 5.5 x10^3/uL (4.8-10.8)
[2021-10-26 15:30] LABS: ALBUMIN 4.3 g/dL (3.2-5.5); ALBUMIN/GLOBULIN RATIO 1.4 (1.0-2.2); ALKALINE PHOSPHATASE 56 IU/L (42-121); ALT ALANINE AMINOTRANSFERASE 35 IU/L (10-60); AST ASPARTATE AMINOTRANSFERASE 27 IU/L (10-42); BILIRUBIN,TOTAL 0.7 mg/dL (0.2-1.0); BUN - BLOOD UREA NITROGEN 18 mg/dL (6-20); CALCIUM 9.7 mg/dL (8.5-10.3); CARBON DIOXIDE - CO2 28 mmol/L (21-32); CHLORIDE 103 mmol/L (101-111); CHOL/HDL RATIO 2.7 (<4.4); CHOLESTEROL 141 mg/dL; CREATININE 0.8 mg/dL (0.4-1.0); GFR - MDRD 69 (>89); GLUCOSE 96 mg/dL (70-100); HDL CHOLESTEROL 53 mg/dL; LDL CHOLESTEROL,CALCULATED 51 mg/dL; POTASSIUM 4.3 mmol/L (3.5-5.0); SODIUM 140 mmol/L (135-145); TOTAL PROTEIN 7.3 g/dL (6.7-8.2); TRIGLYCERIDES 186 mg/dL; VLDL CHOLESTEROL 37 mg/dL
== END 2021-10-26 09:09 | disposition home or self-care (01) ==
LOC: LAB.S 09:08
PROVIDERS: ATTEND Internal Medicine
DX: R68.2 Dry mouth, unspecified (principal); Z79.899 Other long term (current) drug therapy; Z13.220 Encounter for screening for lipoid disorders
CPT/HCPCS: 36415; 80053; 80061; 81599; 83721; 85025; 86235

== ENCOUNTER 2022-02-17 16:48 | Emergency (ER) | payer MEDICARE ==
[2022-02-17] MEDS ORDERED: KETOROLAC 15 MG/ML VIAL IVP STA (16:49)
[2022-02-17] MEDS ORDERED: HYDROmorphone 1 MG/ML CARPUJECT IVP STA (16:49)
--- NOTE | 2022-02-17 16:50 | ED Physician Documentation ---
PD HPI LOWER EXT INJURY - Stated complaint Stated Complaint: KNEE PX - History obtained from History obtained from: Patient, EMS - Additional information Additional information: She was stepping down off of bed and felt like her knee did something wrong and now has severe anterior knee pain and cannot bend it. No fall or other injuries. Pain improved mild in route with the administration of 50 mcg of fentanyl from EMS. 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 HEENT: Cataracts - Present Medications Home Medications: Ambulatory Orders Medication Instructions Recorded Confirmed Atorvastatin Calcium 1 QPM 07/06/16 Biotin 0.5 DAILY 07/06/16 Calcium Carbonate/Vitamin D3 2 DAILY 07/06/16 [Calcium 600-Vit D3 400 Tablet] Cholecalciferol (Vitamin D3) 4 BID 07/06/16 [Vitamin D3] Citalopram [CeleXA] 1.5 DAILY 07/06/16 Cyanocobalamin (Vitamin B-12) 1 DAILY 07/06/16 [Vitamin B12] Docusate Sodium [Stool Softener] 2 BID 07/06/16 Gabapentin 1 BID 07/06/16 Hydrocodone/Acetaminophen 1 BID 07/06/16 [Hydrocodone-APAP 5-300] Magnesium 2 DAILY PM 07/06/16 Multivitamin [Multivitamins] 1 DAILY 07/06/16 Naproxen Sodium [Aleve] 2 BID 07/06/16 Diclofenac Sodium [Voltaren] 2 gm TP Q6H PRN #1 gel..gram. 10/07/19 Oxycodone HCl 5 - 10 mg PO Q6H PRN #20 tablet 10/07/19 HYDROcod/ACETAM 5/325 [[place] 5/325] 1 - 2 tab PO Q6H PRN #15 tablet 02/17/22 - Allergies Allergies/Adverse Reactions: Allergies Allergy/AdvReac Type Severity Reaction Status Date / Time Sulfa (Sulfonamide Allergy Unknown Verified 07/06/16 15:54 Antibiotics) PD ED PE NORMAL - Vitals Vital signs reviewed: Yes - General General: Alert and oriented X 3, No acute distress - Neuro Neuro: Alert and oriented X 3, Normal speech - Psych Psych: Normal mood, Normal affect Results - Vitals Vitals: Vital Signs - 24 hr 02/17/22 02/17/22 02/17/22 16:51 17:43 18:10 Temperature 37.2 C Heart Rate 86 80 82 Respiratory 18 12 18 Rate Blood Pressure 179/100 H 153/91 H O2 Saturation 99 96 Oxygen O2 Source Room air Procedures - Reduction Body part reduced: Right, Patella Fracture or dislocation: Dislocation Reduction aftercare: Xray confirms reduction, Alignment improved - Procedural sedation Sedation prep: Informed consent, Time out completed, Last meal (10am), PE performed, ASA 1 - healthy Sedation Medications: propofol (60mg IVP) Mallampati classification: I Patient status during sedation: Responds to tactile Sedation recovery: Recovered uneventfully Time in sedation (Minutes): 10 PD MEDICAL DECISION MAKING - ED course ED course: Initial x-ray read as patellar tendon rupture, that said she actually has good ability to extend the leg at the knee and is in fact holding it in extension. My review of the literature suggest that this is actually consistent with a superior patellar dislocation which is a rare entity, and that said we reduced it with propofol and it did reduce on postreduction x-rays. Departure - Departure Disposition: 01 Home, Self Care Clinical Impression: Patellar dislocation Qualifiers: Encounter type: initial encounter Laterality: right Qualified Code(s): S83.004A - Unspecified dislocation of right patella, initial encounter Condition: Good Record reviewed to determine appropriate education?: Yes Instructions: ED Dislocation Patella Follow-Up: Orthopedic Care [Provider Group] Prescriptions: HYDROcod/ACETAM 5/325 [[place] 5/325] 1 - 2 tab PO Q6H PRN #15 tablet PRN Reason: Pain Comments: I sent your prescription to [facility] in [place]. As discussed you had a superior patella dislocation, this is actually a very rare entity, we reduced it and placed you in a knee splint. You should keep the knee splint on when up and around, and follow-up with the orthopedic surgeon in the office within the week, call his office tomorrow for an appointment. I am prescribing a short course of narcotic pain medication for you. These are potentially dangerous and addictive medications that should be used carefully. These medications may constipate you. Take an zsyh-sdc-rfclbff stool softener (docusate) twice daily with plenty of water while taking these medications. If you go 24 hours without a bowel movement, take [id number]-myb-nbnhcdd miralax, per package instructions. Do not drink or drive while taking these medications. If you received narcotic or sedating medications while in the emergency department, do not drive for 24 hours. Store this medication in a safe, secure place and out of reach of children. It is a violation of federal law to give or sell this medication to another person or to use in a manner other than prescribed. The ED will not refill narcotic prescriptions, including prescriptions lost or stolen. To dispose of unwanted medications: 1. [facility] at [address] in [place] has a medication drop box. They accept prescription medications (in pill form) Monday through Monday 9:00 a.m. to 5:00 p.m. 2. The [facility] [employer] accepts prescription medications (in pill form only) for disposal year round. Call for more information. 3. Contact the [facility] for the next [facility] sponsored prescription drug collection event. , [phone], or [phone]; Note that many narcotic pain relievers also contain Tylenol/acetaminophen. Please ensure that your total dose of acetaminophen from all sources does not exceed 3 g (3000 mg) per day. Discharge Date/Time: 02/17/22 18:24
[2022-02-17] MEDS ORDERED: PROPOFOL 200 MG/20 ML VIAL IVP STA ×2 (17:15→17:56)
--- NOTE | 2022-02-17 17:58 | XRAY Report ---
PROCEDURE: Knee 2 View RT INDICATIONS: Right knee pain TECHNIQUE: 3 views of the knee(s) were acquired. COMPARISON: None. FINDINGS: Bones: The patella is abnormally positioned and rotated and elevated, the appearance is consistent wi th patellar tendon rupture. The knee has degenerative changes. Soft tissues: No joint effusion. No suspicious soft tissue calcifications. IMPRESSION: Abnormally positioned and rotated patellar tendon consistent with patellar tendon ruptur e. Reviewed by: Edgar Samaniego on 02/17/2022 5:57 PM PDT Approved by: Edgar Samaniego on 02/17/2022 5:57 PM PDT Station ID: [id number]
--- NOTE | 2022-02-17 18:08 | XRAY Report ---
PROCEDURE: Knee 2 View RT INDICATIONS: post reduction TECHNIQUE: 2 views of the right knee(s) were acquired. COMPARISON: None. FINDINGS: Bones: Postreduction views demonstrate good placement of the patellar tendon. Soft tissues: No joint effusion. No suspicious soft tissue calcifications. IMPRESSION: Postreduction views demonstrate good positioning of the patella. Reviewed by: Edgar Samaniego on 02/17/2022 6:07 PM PDT Approved by: Edgar Samaniego on 02/17/2022 6:07 PM PDT Station ID: [id number]
[2022-02-17 18:23] VITALS: BP 153/91
== END 2022-02-17 18:24 | disposition home or self-care (01) ==
LOC: ED 16:48
DX: S83.004A Unspecified dislocation of right patella, initial encounter (principal); X58.XXXA Exposure to other specified factors, initial encounter; Y93.89 Activity, other specified; Y92.003 Bedroom of unspecified non-institutional (private) residence as the place of occurrence of the external cause
CPT/HCPCS: 27550; 73560; 96374; 99152; 99283; 99285; J1170; 94770

== ENCOUNTER 2022-02-24 08:00 | Outpatient (CLI) | payer MEDICARE ==
--- NOTE | 2022-02-24 11:50 | XRAY Report ---
PROCEDURE: Knee 4 View RT INDICATIONS: PATELLA DISLOCATION TECHNIQUE: 4 views of the right knee(s) were acquired. COMPARISON: X-ray right knee, 02/17/2022. FINDINGS: Bones: No fractures or dislocations. No suspicious bony lesions. Mild tricompartmental knee joint d egeneration. Soft tissues: Small joint effusion. No suspicious soft tissue calcifications. IMPRESSION: 1. Mild degenerative joint disease. 2. Small knee joint effusion. 3. Patella is anatomically aligned. No definitive fracture, but subtle fracture could be missed on ra diograph. If clinically indicated, MRI would be helpful to assess patellar tendon and patellofemoral ligament injuries. Reviewed by: Martha Yanes MD on 02/24/2022 11:49 AM PDT Approved by: Martha Yanes MD on 02/24/2022 11:49 AM PDT Station ID: [id number]
== END 2022-02-24 08:01 | disposition home or self-care (01) ==
LOC: DI.WOS 08:00
PROVIDERS: ATTEND Orthopaedic Surgery
DX: M17.11 Unilateral primary osteoarthritis, right knee (principal); M25.461 Effusion, right knee

== ENCOUNTER 2022-03-02 11:08 | Outpatient (CLI) | payer MEDICARE ==
--- NOTE | 2022-03-03 09:37 | Mammography Report ---
BILATERAL DIGITAL SCREENING MAMMOGRAM 3D/2D: 03/02/2022 CLINICAL: Routine screening. Comparison is made to exams dated: 10/11/2020 mammogram, 08/28/2019 mammogram, 07/05/2017 mammogram, an d 02/18/2016 mammogram - [facility]. There are scattered fibroglandular elements in both breasts. No significant masses, calcifications, or other findings are seen in either breast. There has been no significant interval change. IMPRESSION: NEGATIVE There is no mammographic evidence of malignancy. A 1 year screening mammogram is recommended. Based on the Tyrer Cuzick model (a risk assessment model) the patients lifetime risk is 2.2% and her 10 year risk is 0.0%. According to the ACR, ACS, and NCCN guidelines, an annual breast MRI exam rut g with mammogram is recommended if the patients lifetime risk is 20% or greater. This exam was interpreted at Station ID: [id number]. NOTE: For mammograms, a report in lay terms will be sent to the patient. Approximately 15% of breast malignancies will not be visualized mammographically. In the management of a palpable breast mass, a negative mammogram must not discourage biopsy of a clinically suspicious lesion. Electronically Signed By: Willam rizzo/penrad:03/02/2022 16:00:10 ACR BI-RADS Category 1: Negative 3341F PARENCHYMAL PATTERN: (A) - The breast(s) demonstrate(s) scattered fibroglandular densities. BI-RADS CATEGORY: (1) - 1 RECOMMENDATION: (ANNUAL) - Recommend routine annual screening mammography. [id number] 1 year screening LATERALITY: (B)
== END 2022-03-02 11:09 | disposition home or self-care (01) ==
LOC: DI 11:08
PROVIDERS: ATTEND Nurse Practitioner
DX: Z12.31 Encounter for screening mammogram for malignant neoplasm of breast (principal)

== ENCOUNTER 2022-12-23 09:35 | Outpatient (CLI) | payer MEDICARE ==
[2022-12-23 12:04] LABS: BASOPHILS % (AUTO) 0.7 %; EOSINOPHILS # (AUTO) 0.1 10^3/uL (0.0-0.7); EOSINOPHILS % (AUTO) 1.2 %; HCT - HEMATOCRIT 44.1 % (37.0-47.0); HGB - HEMOGLOBIN 14.4 g/dL (12.0-16.0); LYMPHOCYTES # (AUTO) 1.5 10^3/uL (1.5-3.5); LYMPHOCYTES % (AUTO) 26.4 %; MEAN CORPUSCULAR HEMOGLOBIN 31.5 pg (27.0-31.0); MEAN CORPUSCULAR HGB CONC 32.7 g/dL (32.0-36.0); MEAN CORPUSCULAR VOLUME 96.5 fL (81.0-99.0); MEAN PLATELET VOLUME 9.7 fL (7.9-10.8); MONOCYTES # (AUTO) 0.5 10^3/uL (0.0-1.0); NEUTROPHILS # (AUTO) 3.7 10^3/uL (1.5-6.6); NEUTROPHILS % (AUTO) 63.4 %; PLT - PLATELET COUNT 237 10^3/uL (130-450); RED BLOOD COUNT 4.57 10^6/uL (4.20-5.40); WHITE BLOOD COUNT 5.8 x10^3/uL (4.8-10.8)
[2022-12-23 12:54] LABS: THYROID STIMULATING HORMONE 1.96 uIU/mL (0.34-5.60)
[2022-12-23 13:00] LABS: ALBUMIN 4.3 g/dL (3.2-5.5); ALBUMIN/GLOBULIN RATIO 1.3 (1.0-2.2); ALKALINE PHOSPHATASE 72 IU/L (42-121); ALT ALANINE AMINOTRANSFERASE 39 IU/L (10-60); AST ASPARTATE AMINOTRANSFERASE 33 IU/L (10-42); BILIRUBIN,TOTAL 0.6 mg/dL (0.2-1.0); BUN - BLOOD UREA NITROGEN 16 mg/dL (6-20); CALCIUM 10.2 mg/dL (8.5-10.3); CARBON DIOXIDE - CO2 28 mmol/L (21-32); CHLORIDE 106 mmol/L (101-111); CHOL/HDL RATIO 2.2 (<4.4); CHOLESTEROL 122 mg/dL; CREATININE 0.7 mg/dL (0.4-1.0); GFR - MDRD 81 (>89); GLUCOSE 94 mg/dL (70-100); HDL CHOLESTEROL 56 mg/dL; LDL CHOLESTEROL,CALCULATED 40 mg/dL; LDL/HDL RATIO 0.7 (<4.4); MAGNESIUM 2.2 mg/dL (1.7-2.8); POTASSIUM 4.5 mmol/L (3.5-5.0); SODIUM 138 mmol/L (135-145); TOTAL PROTEIN 7.5 g/dL (6.7-8.2); TRIGLYCERIDES 128 mg/dL; VLDL CHOLESTEROL 26 mg/dL
== END 2022-12-23 09:36 | disposition home or self-care (01) ==
LOC: LAB.N 09:35
PROVIDERS: ATTEND Nurse Practitioner
DX: Z51.81 Encounter for therapeutic drug level monitoring (principal); Z79.899 Other long term (current) drug therapy; E78.5 Hyperlipidemia, unspecified; Z13.220 Encounter for screening for lipoid disorders; K21.9 Gastro-esophageal reflux disease without esophagitis; F32.A Depression, unspecified
CPT/HCPCS: 36415; 80053; 80061; 83721; 83735; 84443; 85025

== ENCOUNTER 2023-01-13 14:05 | Outpatient (CLI) | payer MEDICARE ==
--- NOTE | 2023-01-13 16:43 | DEXA Report ---
PROCEDURE: Dexa Spine and/or Hip INDICATIONS: POST MENOPAUSAL TECHNIQUE: Dual energy x-ray absorptiometry (DXA) was performed on a [employer] System. Regions measur ed are the AP Spine, femoral neck, and if needed forearm. COMPARISON: 01/12/2021 FINDINGS: Lumbar Spine: Bone Mineral Density 1.26 g/cm/cm,T score 0.7. Previously 0.5 Left Femoral Neck: Bone Mineral Density 0.72 g/cm/cm, T score -2.3. Previously -2.1 Left Hip: Bone Mineral Density 0.77 g/cm/cm,T score -1.9. Previously -1.8 (T score greater or equal to -1.0: NORMAL) (T score from -1.1 to -2.4: OSTEOPENIA) (T score less than or equal to -2.5 to: OSTEOPOROSIS) Impression: By WHO criteria, this patient has low bone density (osteopenia). Osteopenia of the left femoral neck and hip with slightly decreased T-scores compared to prior. Samaria l bone mineral density of the lumbar spine. Patients with diagnosis of osteoporosis or osteopenia should have regular bone mineral density assess ment. For those eligible for Medicare, routine testing is allowed once every 2 years. Testing frequ ency can be increased for patients who have rapidly progressing disease or for those who are receivin g medical therapy to restore bone mass. Reviewed by: Chandler Victoria MD on 01/13/2023 4:42 PM PDT Approved by: Chandler Victoria MD on 01/13/2023 4:42 PM PDT Station ID: [id number]
== END 2023-01-13 14:06 | disposition home or self-care (01) ==
LOC: DI 14:05
PROVIDERS: ATTEND Nurse Practitioner
DX: M85.89 Other specified disorders of bone density and structure, multiple sites (principal)

== ENCOUNTER 2023-03-30 13:28 | Outpatient (CLI) | payer MEDICARE ==
--- NOTE | 2023-03-31 12:57 | Mammography Report ---
BILATERAL DIGITAL SCREENING MAMMOGRAM 3D/2D: 03/30/2023 CLINICAL: Routine screening. Comparison is made to exams dated: 03/02/2022 mammogram, 10/11/2020 mammogram, 08/28/2019 mammogram, mammogram, 02/18/2016 mammogram, and 02/11/2015 mammogram - [facility]. There are scattered areas of fibroglandular density in both breasts (category b / 25%-50% glandular t issue). No significant masses, calcifications, or other findings are seen in either breast. There has been no significant interval change. IMPRESSION: NEGATIVE There is no mammographic evidence of malignancy. A 1 year screening mammogram is recommended. Based on the Tyrer Cuzick model (a risk assessment model) the patients lifetime risk is 1.9% and her 10 year risk is 0.0%. According to the ACR, ACS, and NCCN guidelines, an annual breast MRI exam rut g with mammogram is recommended if the patients lifetime risk is 20% or greater. This exam was interpreted at Station ID: [id number]. NOTE: For mammograms, a report in lay terms will be sent to the patient. Approximately 15% of breast malignancies will not be visualized mammographically. In the management of a palpable breast mass, a negative mammogram must not discourage biopsy of a clinically suspicious lesion. Electronically Signed By: Chandler caldwell/[email or web address]:03/30/2023 14:51:28 letter sent: No_Letter ACR BI-RADS Category 1: Negative 3341F PARENCHYMAL PATTERN: (A) - The breast(s) demonstrate(s) scattered fibroglandular densities. BI-RADS CATEGORY: (1) - 1 Mammogram [id number] 1 year screening LATERALITY: (B)
== END 2023-03-30 13:29 | disposition home or self-care (01) ==
LOC: DI 13:28
DX: Z12.31 Encounter for screening mammogram for malignant neoplasm of breast (principal)

== ENCOUNTER 2024-01-26 09:17 | Outpatient (CLI) | payer MEDICARE ==
[2024-01-26 09:29] LABS: BASOPHILS % (AUTO) 0.6 %; EOSINOPHILS % (AUTO) 0.7 %; HCT - HEMATOCRIT 42.2 % (37.0-47.0); HGB - HEMOGLOBIN 14.1 g/dL (12.0-16.0); LYMPHOCYTES # (AUTO) 1.4 10^3/uL (1.5-3.5); LYMPHOCYTES % (AUTO) 25.6 %; MEAN CORPUSCULAR HEMOGLOBIN 32.1 pg (27.0-31.0); MEAN CORPUSCULAR HGB CONC 33.4 g/dL (32.0-36.0); MEAN CORPUSCULAR VOLUME 96.1 fL (81.0-99.0); MEAN PLATELET VOLUME 8.8 fL (7.9-10.8); MONOCYTES # (AUTO) 0.4 10^3/uL (0.0-1.0); MONOCYTES % (AUTO) 8.1 %; NEUTROPHILS # (AUTO) 3.5 10^3/uL (1.5-6.6); NEUTROPHILS % (AUTO) 64.6 %; PLT - PLATELET COUNT 205 10^3/uL (130-450); RED BLOOD COUNT 4.39 10^6/uL (4.20-5.40); RED CELL DISTRIBUTION WIDTH 12.5 % (12.0-15.0); WHITE BLOOD COUNT 5.4 x10^3/uL (4.8-10.8)
[2024-01-26 09:41] LABS: ALBUMIN 4.7 g/dL (3.2-5.5); ALBUMIN/GLOBULIN RATIO 1.7 (1.0-2.2); ALKALINE PHOSPHATASE 82 IU/L (42-121); ALT ALANINE AMINOTRANSFERASE 44 IU/L (10-60); AST ASPARTATE AMINOTRANSFERASE 37 IU/L (10-42); BILIRUBIN,TOTAL 0.7 mg/dL (0.2-1.0); BUN - BLOOD UREA NITROGEN 17 mg/dL (6-20); CALCIUM 11.1 mg/dL (8.5-10.3); CARBON DIOXIDE - CO2 29 mmol/L (21-32); CHLORIDE 104 mmol/L (101-111); CHOL/HDL RATIO 2.3 (<4.4); CHOLESTEROL 129 mg/dL; CREATININE 0.8 mg/dL (0.6-1.3); GFR - MDRD 69 (>89); GLUCOSE 100 mg/dL (74-104); HDL CHOLESTEROL 55 mg/dL; LDL CHOLESTEROL,CALCULATED 44 mg/dL; LDL/HDL RATIO 0.8 (<4.4); SODIUM 138 mmol/L (135-145); TOTAL PROTEIN 7.5 g/dL (6.4-8.9); TRIGLYCERIDES 150 mg/dL (48-352); VLDL CHOLESTEROL 30 mg/dL
== END 2024-01-26 09:18 | disposition home or self-care (01) ==
LOC: LAB 09:17
PROVIDERS: ATTEND Nurse Practitioner
DX: E78.5 Hyperlipidemia, unspecified (principal); Z51.81 Encounter for therapeutic drug level monitoring
CPT/HCPCS: 36415; 80053; 80061; 83721; 85025

== ENCOUNTER 2024-02-27 11:52 | Outpatient (CLI) | payer MEDICARE | END 2024-02-27 11:53 | disposition home or self-care (01) | LOC: LAB.N 11:52 | PROVIDERS: ATTEND Nurse Practitioner | DX: E83.52 Hypercalcemia (principal) | CPT/HCPCS: 36415; 83970 ==